=== PATIENT | female | born 1975 | race Caucasian/White ===

== ENCOUNTER → 2021-01-14 14:59 | Outpatient (CLI) | payer OTHER, SELFPAY ==
--- NOTE | ~2021-01-14 | XR_ITS ---
XR foot RT min 3V DATE: 01/14/2021 15:25 INDICATION: Pain of right toes TECHNIQUE: 4 views COMPARISON: None FINDINGS: There is a nondisplaced linear oblique fracture through the metaphysis of the proximal phal anx of the fourth digit. No other fracture or dislocation is detected. No periosteal reaction or bone destruction. IMPRESSION: Nondisplaced metaphyseal fracture of proximal phalanx of fourth digit Reviewed, dictated and finalized at location A. IMPRESSION: Nondisplaced metaphyseal fracture of proximal phalanx of fourth dig it
== END ==
PROVIDERS: PCP Family Medicine; Visit Provider Family Medicine
DX: S62.644A Nondisplaced fracture of proximal phalanx of right ring finger, initial encounter for closed fracture (principal); X58.XXXA Exposure to other specified factors, initial encounter
CPT/HCPCS: 73630

== ENCOUNTER → 2021-03-25 14:54 | Outpatient (CLI) | payer OTHER, SELFPAY ==
--- NOTE | ~2021-03-25 | XR_ITS ---
EXAMINATION: XR wrist LT min 3V DATE: 03/25/2021 15:13 INDICATION: Left wrist pain. TECHNIQUE: 4 views of left wrist were obtained. COMPARISON: None. FINDINGS: Bone alignment is normal. No fracture. There is mild osteoarthritis of first carpometacarpa l joint. IMPRESSION: 1. Mild osteoarthritis of first carpometacarpal joint. Reviewed, dictated and finalized at location A.
== END ==
PROVIDERS: PCP Family Medicine; Visit Provider Family Medicine
DX: M19.032 Primary osteoarthritis, left wrist (principal)
CPT/HCPCS: 73110

== ENCOUNTER → 2021-08-06 02:13 | Outpatient (CLI) | payer OTHER, SELFPAY ==
[2021-08-06 11:54] LABS: SARS-CoV-2 RNA PCR Negative
== END ==
PROVIDERS: PCP Family Medicine; Visit Provider Family Medicine
DX: R05.9 Cough, unspecified (principal); Z20.822 Contact with and (suspected) exposure to COVID-19
CPT/HCPCS: C9803; U0003; U0005

== ENCOUNTER 2021-09-23 23:36 | Emergency (ER) | payer OTHER, SELFPAY ==
--- NOTE | ~2021-09-23 | CT_ITS ---
EXAMINATION: CT brain wo con EXAM DATE: 09/24/2021 00:31 INDICATION: Headache. History of migraine headaches. TECHNIQUE: Spiral CT of the head was performed without contrast. Axial, coronal and sagittal images were reviewed. The dose-length product (DLP) for this examination was 605.33 mGy-cm. The exposure w as tailored according to patient size, and iterative reconstruction (ASIR) was used as additional dos e reduction technique. There is no prior study for comparison. FINDINGS: There is no acute intraparenchymal hemorrhage. No evidence of intraparenchymal brain mass lesion. No evidence of acute infarction. There is no mass effect or midline shift. The ventricles are normal in size. There are no extra-axial collections. There are no acute calvarial fractures. T he orbits are unremarkable. Soft tissue is unremarkable. The visualized sinuses and mastoid air saima ls are well aerated. IMPRESSION: No acute intracranial findings. Reviewed, dictated and finalized at location A.
[2021-09-23 23:43] VITALS: O2SAT 100
[2021-09-23 23:45] VITALS: BP 185/75; PULSE 67; RESP 15; O2SAT 100
[2021-09-23 23:46] VITALS: PULSE 66; RESP 16; O2SAT 99
[2021-09-23 23:47] VITALS: BP 176/91; PULSE 72; RESP 25; O2SAT 100
[2021-09-23 23:48] VITALS: BP 176/91; PULSE 73; RESP 16; O2SAT 100
[2021-09-24] VITALS (11 sets, daily range): BP systolic 157; BP diastolic 91; PULSE 53–69; RESP 13–21; O2SAT 97–100
--- NOTE | 2021-09-24 00:03 | ED.GENADULT ---
HPI - General Adult General Chief complaint: Headache Stated complaint: sudden onset perez Time Seen by Provider: 09/23/21 23:51 Source: patient History of Present Illness HPI narrative: 46-year-old female presenting to the emerge department for evaluation of acute onset of a posterior headache. Patient does have history of migraines that are not similar to her current headache. Patient states that she had an orgasm and felt acute onset of the headache. Patient does have associated light sensitivity and nausea. Patient denies any associated numbness or weakness. Patient denies any discoordination, ataxia or speech changes. Patient reports a history of migraines. Related Data Allergies Allergy/AdvReac Type Severity Reaction Status Date / Time No Known Allergies Allergy Mild Verified 05/20/11 16:51 cats Allergy Unknown RESPIR. Uncoded 09/23/21 23:52 DISTRESS, EYE'S SWELLING clams Allergy Unknown THROAT Uncoded 09/23/21 23:52 SWELLING, RESPIR. DISTRESS oysters Allergy Unknown THROAT Uncoded 09/23/21 23:52 SWELLING, RESPIR. DISTRESS Review of Systems Review of Systems: CONSTITUTIONAL: Denies fever, chills, or sweats. EYES: Denies visual changes, redness, or discharge. ENT: Denies rhinorrhea, congestion, sore throat, or otalgia. CARDIOVASCULAR: Denies chest pain, palpitations, or edema. RESPIRATORY: Denies cough or dyspnea. GASTROINTESTINAL: Denies abdominal pain, nausea, vomiting, or diarrhea. GENITOURINARY: Denies dysuria or hematuria. SKIN: Denies rash or itching. MUSCULOSKELETAL: Denies back pain, joint pain, or myalgia. NEUROLOGIC: Headache but denies any focal numbness or weakness. [facility] Family History Family History (Updated 02/02/14 @ 07:13 by DOCTOR UNKNOWN) Father Family history of hepatitis Mother Family history of hepatitis Social History Social History Alcohol intake: current Substance use type: marijuana Exam Narrative: APPEARANCE: Distress secondary to headache HEAD: normocephalic, atraumatic. EYES: PERRLA/EOMI, conjunctivae clear. NOSE: Normal no drainage NECK: Supple. No adenopathy, no masses. RESPIRATORY: Airway patent, respirations nonlabored. Clear to auscultation bilaterally, no rales, rhonchi, wheezing. CARDIOVASCULAR: Regular rate and rhythm without murmurs rubs or gallops. ABDOMINAL: Soft, nontender, nondistended, normal bowel sounds MUSCULOSKELETAL: Moves all extremities. Strength/ROM intact, No edema, No calf tenderness. NEURO: Alert. Cranial nerves II through XII intact. Normal strength and coordination, no ataxia. Grossly normal exam SKIN: Warm, dry. Normal Color Course Reevaluation(s) Reevaluation #1: Head CT was negative for any acute abnormality. Headache was acute in onset just prior to arrival. With this timing CT has high specificity and sensitivity for acute bleeds. Patient is resting comfortably and reports she feels improved. Patient states she does still have some mild headache but is resting comfortably. Patient states she prefers to go home and get some rest. Patient states she will have close follow-up with her neurologist and with her primary care physician. Patient was updated on the results of her work-up including her CT scan. Patient was also educated on reasons to return to the emergency department. All questions and concerns were addressed. Vital Signs Vital signs: Vital Signs Pulse Oximetry 100 09/23/21 23:43 Pulse Rate 53 L 09/24/21 02:45 Respiratory Rate 16 09/24/21 02:45 Blood Pressure 157/91 H 09/24/21 02:45 Pulse Oximetry 98 09/24/21 02:45 Medical Decision Making Vital Signs Vital Signs: Vital Signs Pulse Oximetry 100 09/23/21 23:43 Pulse Rate 53 L 09/24/21 02:45 Respiratory Rate 16 09/24/21 02:45 Blood Pressure 157/91 H 09/24/21 02:45 Pulse Oximetry 98 09/24/21 02:45 Lab Data Lab results reviewed: Yes I reviewed the patient's lab results.
[2021-09-24] MEDS: diphenhydrAMINE HCl INJ 50 MG/ML VIAL 25 MG IV PUSH (00:08)
[2021-09-24] MEDS: HYDROmorphone HCL INJ (*CRX) 1 MG/ML SYR IV PUSH (00:09)
[2021-09-24] MEDS: PROCHLORPERAZINE EDISYLATE 10 MG/2 ML VIAL IV PUSH (00:11)
[2021-09-24 00:23] LABS: Basophils Absolute Auto 0.1 K/mm3 (0.0-0.1); Basophils Percent Auto 0.4 % (0.2-1.2); Eosinophils Absolute Auto 0.2 K/mm3 (0-0.3); Eosinophils Percent Auto 1.3 % (0-4.4); Hemoglobin 13.5 g/dL (12.0-15.0); Immature Granulocyte Absolute 0.03 K/mm3 (0.00-0.031); Immature Granulocyte Percent A 0.2 % (0-0.5); Lymphocytes Absolute Auto 5.65 K/mm3 (0.9-3.2); Lymphocytes Percent Auto 45.4 % (18.3-44.2); Mean Corpuscular HGB Conc 32.1 g/dl (32-36); Mean Corpuscular Volume 96.6 fl (80-100); Mean Platelet Volume 11.5 fl (7.4-10.4); Monocytes Absolute Auto 0.6 K/mm3 (0.1-0.6); Monocytes Percent Auto 4.8 % (2.6-8.5); Neutrophils Percent Auto 47.9 % (45.5-73.1); Platelet Count Result 184 k/mm3 (150-375); Red Blood Count 4.35 M/mm3 (4.2-5.4); Red Cell Distribution Width 13.4 % (11.5-14.5); White Blood Count 12.4 K/mm3 (4.5-10.0)
[2021-09-24 00:35] LABS: Prothrombin Time 12.9 Seconds (11.1-14.7)
[2021-09-24 00:36] LABS: Partial Thromboplastin Time 24.4 SECONDS (22.3-36.8)
[2021-09-24 00:40] LABS: Alanine Aminotransferase 26 U/L (4-35); Albumin Level 4.4 g/dL (3.5-5.1); Alkaline Phosphatase 75 U/L (38-126); Anion Gap 9 mmol/L (8-16); Aspartate Amino Transferase 59 U/L (14-36); Bilirubin,Total 0.4 mg/dL (0.2-1.3); Blood Urea Nitrogen 13 mg/dL (7-17); Calcium 9.1 mg/dL (8.4-10.2); Carbon Dioxide 26 mmol/L (22-30); Chloride 103 mmol/L (98-107); Estimated CRCL calculation 99 ml/min; Estimated Glomerular Filt Rate > 60; Glucose 119 mg/dL (65-110); Potassium 3.7 mmol/L (3.4-5.0); Sodium 138 mmol/L (137-145)
[2021-09-24] MEDS: SODIUM CHLORIDE 0.9% IV 1,000 ML 999 ML IV CONT (01:42)
[2021-09-24] MEDS: KETOROLAC 15 MG/ML VIAL (*BKC) IV PUSH (01:42)
[2021-09-24] MEDS: HYDROmorphone HCL INJ (*CRX) 1 MG/ML SYR 0.5 MG IV PUSH (02:24)
== END 2021-09-24 02:41 | disposition home or self-care (01) ==
PROVIDERS: Emergency Provider Emergency Medicine; PCP Family Medicine
DX: R51.9 Headache, unspecified (principal)
CPT/HCPCS: 36415; 70450; 80053; 85025; 85610; 85730; 96361; 96374; 96375; 96376; 99284; J0780; J1100; J1170; J1200; J1885; J7030

== ENCOUNTER 2021-09-28 09:34 | Emergency (ER) | payer OTHER, SELFPAY ==
[2021-09-28 09:38] VITALS: BP 120/58; PULSE 67; RESP 20; TEMP 36.6; O2SAT 100
[2021-09-28 10:49] VITALS: BP 131/79; PULSE 65; RESP 17; O2SAT 100
--- NOTE | 2021-09-28 11:01 | ED.GENADULT ---
HPI - General Adult General Chief complaint: Headache <Caity Faust PA-C - Last Filed: 09/28/21 16:42> Stated complaint: migraine since thursday night-here thursday <Caity Faust PA-C - Last Filed: 09/28/21 16:42> Time Seen by Provider: 09/28/21 10:23 <Caity Faust PA-C - Last Filed: 09/28/21 16:42> Source: patient <JANIE Patel Last Filed: 09/28/21 16:42> Mode of arrival: ambulatory <JANIE Patel Last Filed: 09/28/21 16:42> Limitations: no limitations <JANIE Patel Last Filed: 09/28/21 16:42> History of Present Illness HPI narrative: Patient is a 46-year-old female who presents the ED with report of a diffuse headache. Patient reports her headache began on Thursday. She was seen in the ED a few hours after the onset of her headache. CT head negative at that time. She was given pain medicine, fluids, nausea medicine, steroids and did have mild relief of her pain upon leaving. Patient reports the pain has been constant since then however. Does have a history of similar migraines but states it has never lasted this long. She has been taking marijuana Gummies at home but has not tried any Tylenol, ibuprofen, or her typical migraine medications. She does have a long history of migraines and sees a neurologist. She states she spoke to her neurologist at [facility] on Thursday and was told she needed an MRI. She does receive a monthly medication injection and has a PRN prophylactic medication which she states she tried earlier this week, but has not tried taken again. She also reports having photophobia, nausea, and mild neck pain, radiating from head. No neck stiffness. She does have nausea medicine at home but has not tried this. Did report 1 episode of vomiting yesterday. No diarrhea, constipation, urinary symptoms, fever, chills, vision changes, numbness/tingling, weakness. <JANIE Patel Last Filed: 09/28/21 16:42> Related Data Allergies/adverse reactions: Allergies Allergy/AdvReac Type Severity Reaction Status Date / Time No Known Allergies Allergy Mild Verified 05/20/11 16:51 cats Allergy Unknown RESPIR. Uncoded 09/23/21 23:52 DISTRESS, EYE'S SWELLING clams Allergy Unknown THROAT Uncoded 09/23/21 23:52 SWELLING, RESPIR. DISTRESS oysters Allergy Unknown THROAT Uncoded 09/23/21 23:52 SWELLING, RESPIR. DISTRESS <Caity Faust PA-C - Last Filed: 09/28/21 16:42> Review of Systems Review of Systems: CONSTITUTIONAL: Denies fever, chills. EYES: Reports photophobia. Denies visual changes. CARDIOVASCULAR: Denies chest pain. RESPIRATORY: Denies dyspnea. GASTROINTESTINAL: Reports nausea, vomiting. Denies abdominal pain, constipation, or diarrhea. GENITOURINARY: Denies dysuria or hematuria. MUSCULOSKELETAL: Reports mild neck pain radiating from head. Denies back pain, neck stiffness. NEUROLOGIC: Reports headache. Denies numbness, tingling, or weakness. <Caity Faust PA-C - Last Filed: 09/28/21 16:42> All systems reviewed & are unremarkable except as noted in HPI and below <Caity Faust PA-C - Last Filed: 09/28/21 16:42> [facility] Past Medical History Medical History: Medical History Depression Hypothyroidism Migraines <Caity Faust PA-C - Last Filed: 09/28/21 16:42> Surgical History Surgical History: Surgical History (Updated 09/28/21 @ 11:07 by Caity Faust PA-C) History of section <Caity Faust PA-C - Last Filed: 09/28/21 16:42> Family History Family History: Family History (Updated 02/02/14 @ 07:13 by DOCTOR UNKNOWN) Father Family history of hepatitis Mother Family history of hepatitis <Caity Faust PA-C - Last Filed: 09/28/21 16:42> Social History Social History: Social History Alcohol intake: current S
[2021-09-28] MEDS: METOCLOPRAMIDE HCL INJ 10 MG/2 ML VIAL IV PUSH (11:18)
[2021-09-28] MEDS: KETOROLAC 30 MG/ML VIAL (*BKC) IV PUSH (11:26)
[2021-09-28] MEDS: SODIUM CHLORIDE 0.9% IV 1,000 ML 999 ML IV CONT (11:30)
[2021-09-28] MEDS: diphenhydrAMINE HCl INJ 50 MG/ML VIAL 25 MG IV PUSH (11:31)
[2021-09-28 12:07] VITALS: BP 143/110; PULSE 63; RESP 16; O2SAT 100
[2021-09-28 13:01] VITALS: BP 125/71; PULSE 59; RESP 15; O2SAT 100
== END 2021-09-28 13:04 | disposition home or self-care (01) ==
PROVIDERS: Emergency Provider Emergency Medicine; PCP Family Medicine
DX: G43.901 Migraine, unspecified, not intractable, with status migrainosus (principal); E03.9 Hypothyroidism, unspecified
CPT/HCPCS: 96365; 96375; 99284; J0131; J1200; J1885; J2765; J7030